=== PATIENT | male | born 1985 | race American Indian/Alaskan Native ===

== ENCOUNTER 2017-12-28 11:26 | Emergency (ER) | payer MEDICAID ==
[2017-12-28 12:00] VITALS: BP 123/81
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
== END 2017-12-28 12:57 | disposition home or self-care (01) ==
LOC: ED 11:26
DX: M79.621 Pain in right upper arm (principal); W34.00XD Accidental discharge from unspecified firearms or gun, subsequent encounter; F17.200 Nicotine dependence, unspecified, uncomplicated
CPT/HCPCS: 99282